=== PATIENT | female | born 1980 ===

== ENCOUNTER 2018-07-08 16:40 | Emergency (ER) | payer SELFPAY ==
[2018-07-08 16:40] VITALS: BMI 27.1
[2018-07-08 16:47] VITALS: BP 93/59; PULSE 88; RESP 18; TEMP 97.8; O2SAT 100
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
--- NOTE | 2018-07-09 08:24 | RAD ---
Date of service: 07/08/2018 PROCEDURE: Left Foot Radiographs. HISTORY: TRAUMA COMPARISON: None. FINDINGS: BONES: A medial malleolar fracture is noted. Its chronicity is unclear it may be acute or subacute. Endosteal eccentric sclerosis distal tibial metaphysis noted nonspecific probably benign. No pathological fracture seen here. JOINTS: Mild 1st metatarsal-phalangeal joint arthrosis SOFT TISSUES: Normal. OTHER FINDINGS: Inferior calcaneal spur . [place] tendon insetional enesthesophyte. IMPRESSION: Nondisplaced medial malleolar fracture-as detailed above. Other findings as above. Comments: Study marked for PA review .
--- NOTE | 2018-07-09 08:30 | RAD ---
Date of service: 07/08/2018 PROCEDURE: Radiographs of the left tibia and fibula. HISTORY: TRAUMA COMPARISON: None available. TECHNIQUE: Frontal and lateral views obtained. FINDINGS: BONES: Nondisplaced medial malleolar fracture noted. Acute and/or subacute-correlate clinically no marked soft tissue swelling here seen There is ill definition to the lateral tibial plateau--a fracture here is a consideration. There is also some prominence of the proximal tibial metaphyseal to epiphyseal trabecular markings-a additional trabecular microfracture here is a consideration. Areas of endosteal sclerosis distal tibial metaphysis and slightly more proximal fibular shaft noted no pathological fracture at the sites-clinical significance unclear-findings nonspecific. Benign etiology favored. JOINT SPACES: Unremarkable. OTHER FINDINGS: Quadriceps insertional enthesophyte IMPRESSION: Distally a nondisplaced medial malleolar fracture is noted-acute and/or subacute in chronicity probable. Correlate clinically. Ill definition to the lateral tibial plateau-a fracture here is a consideration in for more sensitive accurate assessment consider left knee x-ray. Areas of endosteal sclerosis nonspecific are as referenced above. Comments: Study marked for PA review .
--- NOTE | 2018-07-09 08:34 | RAD ---
Date of service: 07/08/2018 PROCEDURE: Left Ankle Radiographs. HISTORY: TRAUMA COMPARISON: None available. FINDINGS: BONES: Nondisplaced medial malleolar fracture present since into the tibial talar joint. Possible concomitant nondisplaced posterior malleolar fracture versus Mach band artifact from posterior fibular cortex. Areas of a eccentric endosteal skin sclerosis nonspecific distal tibial metaphysis and partially visualized fibular diaphysis Inferior calcaneal spur . [place]'s tendon insetional enesthesophyte. JOINTS: . Osteoarthritis. Ankle mortise maintained. Talar dome intact SOFT TISSUES: Swelling medial and lateral ankle OTHER FINDINGS: None. IMPRESSION: Nondisplaced medial malleolar fracture. Possible concomitant nondisplaced posterior malleolar fracture versus artifact. Consider, CT left ankle to further clarify if needed. Other findings as above. Comments: Study marked for PA review .
--- NOTE | 2018-07-09 08:43 | RAD ---
PROCEDURE: Right Hand Radiographs. HISTORY: TRAUMA COMPARISON: None. FINDINGS: BONES: Per series 3, image 1 lateral view-a dorsal carpal level triquetrum fracture is suggested. JOINTS: Severe radiocarpal osteoarthrosis. Radial ulnar arthrosis. Carpal and distal radial and ulnar subchondral cystic arthropathic changes noted. SOFT TISSUES: Swelling dorsal and lateral aspect-carpus OTHER FINDINGS: None. IMPRESSION: Triquetrum fracture-dorsally displaced. Marked advanced cystic arthropathy as above. Comments: Study marked for PA review .
--- NOTE | 2018-07-09 08:49 | RAD ---
Date of service: 07/08/2018 PROCEDURE: Right Wrist Radiographs. HISTORY: TRAUMA COMPARISON: None. FINDINGS: BONES: triquetral fracture -dorsally displaced. JOINTS: Severe cystic arthrosis radiocarpal, radial ulnar and proximal carpal row SOFT TISSUES: Swelling OTHER FINDINGS: None. IMPRESSION: Dorsal the displaced carpal level triquetrum fracture Advanced cystic arthropathy as above. Comments: Study marked for PA review .
== END 2018-07-08 18:10 | disposition home or self-care (01) ==
LOC: C.ER 16:40
DX: S93.402A Sprain of unspecified ligament of left ankle, initial encounter (principal); S63.501A Unspecified sprain of right wrist, initial encounter; S80.12XA Contusion of left lower leg, initial encounter; V09.3XXA Pedestrian injured in unspecified traffic accident, initial encounter; Y92.410 Unspecified street and highway as the place of occurrence of the external cause